=== PATIENT | male | born 1995 | race Caucasian/White ===

== ENCOUNTER → 2018-11-05 11:23 | Emergency (ER) | payer MEDICAID, OTHER ==
[~2018-11-05 11:23] MED LIST: Ketorolac INJ* 30 MG/ML 1 ML VIAL IV PUSH ONE
--- NOTE | 2018-11-05 12:17 | ED ---
Neurological HPI - HPI Summary HPI Summary: Pt is a 23 y/o M presenting to the ED with a chief complaint of seizures. This morning he had a headache onset around 0630 and he felt that he was going to have a seizure around 0845, so he told his brother who laid him in the safe position. He had three seizures in total, the 2nd and 3rd one both lasted five minutes. The pt denies chest pain, sob, fast HR, fever, chills, nausea, vomiting , falling, or hitting his head. The pt states a hx of asthma, PTSD, bipolar disorder, anxiety, depression, and GERD. He also reports he rarely drinks alcohol but does use marijuana. He has a hx of stress-induced seizures but he has not had them in a long time. He had a full workup done in [place] about 7 years ago, and his doctor said that he wanted another MRI or CT done to see if anything has progressed. - History of Current Complaint Chief Complaint: EDSeizure Stated Complaint: SEIZURE Time Seen by Provider: 11/05/18 11:39 Hx Obtained From: Patient Onset/Duration: Gradual Onset, Started hours ago, Resolved Timing: Constant Onset Severity: Mild Current Severity: Mild Seizure Severity: Moderate Number of Seizures: 3 - lasting 5 minutes Pain Intensity: 5 Pain Scale Used: 0-10 Numeric Aggravating: Headaches Alleviating: Spontanious Resolution Associated Signs and Symptoms: Positive: Headache, Seizure. Negative: Nausea/ Vomiting, Fever, Chest Pain Related Hx: Seizure - Allergy/Home Medications Allergies/Adverse Reactions: Allergies Allergy/AdvReac Type Severity Reaction Status Date / Time MS Diphenhydramine Allergy Intermediate Hives Verified 03/26/14 01:05 [From Benadryl] MS Levetiracetam AdvReac Intermediate MOOD SWING Verified 03/26/14 01:05 [From Keppra] bee sting Allergy Severe Shortness Uncoded 03/26/14 01:05 of Breath Home Medications: Home Medications Pantoprazole TAB * [Protonix TAB*] 40 mg PO DAILY 11/05/18 [History Confirmed ] lamoTRIgine [Lamotrigine] 50 tab PO DAILY 11/05/18 [History Confirmed 11/05/18] PMH/Surg Hx/FS Hx/Imm Hx Previously Healthy: No Endocrine/Hematology History: Denies: Hx Diabetes, Hx Thyroid Disease Cardiovascular History: Reports: Hx Hypertension Respiratory History: Reports: Hx Asthma, Hx Pneumonia Denies: Hx Chronic Obstructive Pulmonary Disease (COPD) GI History: Reports: Hx Gastroesophageal Reflux Disease Denies: Hx Ulcer History: Reports: Hx Kidney Infection, Hx Kidney Stones Sensory History: Reports: Hx Contacts or Glasses Opthamlomology History: Reports: Hx Contacts or Glasses Neurological History: Reports: Hx Seizures Psychiatric History: Reports: Hx Anxiety, Hx Depression Denies: Hx Eating Disorder - Surgical History Surgery Procedure, Year, and Place: hernia repair as an Infectious Disease History: No Infectious Disease History: Denies: Hx Hepatitis, Hx Human Immunodeficiency Virus (HIV), Traveled Outside the [place] in Last 30 Days - Family History Known Family History: Negative: Renal Disease - Social History Alcohol Use: Occasionally Hx Substance Use: Yes Substance Use Type: Reports: Marijuana Hx Tobacco Use: No Smoking Status (MU): Never Smoked Tobacco Have You Smoked in the Last Year: No Review of Systems Negative: Fever, Chills Negative: Chest Pain Negative: Shortness Of Breath Negative: Vomiting, Nausea Neurological: Other - seizure All Other Systems Reviewed And Are Negative: Yes Physical Exam - Summary Physical Exam Summary: GENERAL: Patient is a well-developed and nourished M who is lying comfortable in the stretcher. Patient is not in any acute respiratory distress. HEAD AND FACE: Normocephalic EYES: PERRLA, EOMI x 2. EARS: Hearing grossly intact. MOUTH: Oropharynx within normal limits. NECK: Supple, trachea is midline, no adenopathy, no JVD, no carotid bruit. CHEST: Symmetric, no tenderness at palpation LUNGS: Clear to auscultation bilaterally. No wheezing or crackles. CVS: Regular rate and rhythm, S1 and S2 present, no murmurs or gallops appreciated. ABDOMEN: Soft, non-tender. Bowel sounds are normal. No abdominal abnormal pulsations. EXTREMITIES: Full ROM in all major joints, no edema, no cyanosis or clubbing. NEURO: Alert and oriented x 3. No acute neurological deficits. Speech is normal and follows commands. SKIN: Dry and warm GCS: 15 Triage Information Reviewed: Yes Vital Signs On Initial Exam: Initial Vitals Temp Pulse Resp BP Pulse Ox 99.9 F 81 14 145/105 96 11/05/18 11:49 11/05/18 11:49 11/05/18 11:49 11/05/18 11:49 11/05/18 11:49 Vital Signs Reviewed: Yes Diagnostics - Vital Signs Vital Signs Temp Pulse Resp BP Pulse Ox 11/05/18 12:00 74 21 98 11/05/18 11:49 99.9 F 70 13 145/105 96 - Laboratory Result Diagrams: 11/05/18 12:43 11/05/18 12:43 Lab Statement: Any lab studies that have been ordered have been reviewed, and results considered in the medical decision making process. - CT Brain CT CT Interpretation Completed By: Radiologist Summary of CT Findings: No acute intracranial pathology. ED physician has reviewed this report. - EKG 1245 Cardiac Rate: NL - 77bpm EKG Rhythm: Sinus Rhythm ST Segment: Normal Ectopy: None Course/Dx - Course Course Of Treatment: Pt is a 23 y/o M presenting to the ED with a chief complaint of seizures. This morning he had a headache onset around 0630 and he felt that he was going to have a seizure around 0845, so he told his brother who laid him in the safe position. He had three seizures in total, the 2nd and 3rd one both lasted five minutes. The pt denies chest pain, sob, fast HR, fever , chills, nausea, vomiting, falling, or hitting his head. The pt states a hx of asthma, PTSD, bipolar disorder, anxiety, depression, and GERD. He also reports he rarely drinks alcohol but does use marijuana. An EKG shows NSR at 77bpm. Brain CT shows no acute intracranial pathology. As of 1405 the pt still has a small headache so he will be given toradol and then sent home. The pt will be sent home with a dx of seizure and instructions to follow up with neurology. I discussed results with patient and he reports feeling better. He is hemodynamically stable and safe for discharge. Strict return precautions given and he will otherwise follow up with neurology. - Diagnoses Provider Diagnoses: Seizure Discharge - Sign-Out/Discharge Documenting (check all that apply): Patient Departure Patient Received Moderate/Deep Sedation with Procedure: No - Discharge Plan Condition: Stable Disposition: HOME Forms: *Work Release Referrals: Yasmani Anguiano MD [Medical Doctor] - Additional Instructions: Follow up with neurology in 1-3 days. RETURN TO THE EMERGENCY DEPARTMENT FOR CHANGING OR WORSENING SYMPTOMS. - Billing Disposition and Condition Condition: STABLE Disposition: Home - Attestation Statements Document Initiated by Scribe: Yes Documenting Scribe: Leanne Cr Provider For Whom Keo is Documenting (Include Credential): Carlos Goins MD. Scribe Attestation: Leanne Millan, scribed for Carlos Goins MD. on 11/06/18 at 1210. Scribe Documentation Reviewed: Yes Provider Attestation: The documentation as recorded by the scribe, Leanne Cr accurately reflects the service I personally performed and the decisions made by me, Chloe Goins MD. Status of Scribe Document: Viewed
[2018-11-05 12:53] LABS: ABS Basophils 0 10^3/ul (0-0.2); ABS Eosinophils 0.1 10^3/ul (0-0.6); ABS Lymphocytes 2.1 10^3/ul (1.0-4.8); ABS Monocytes 0.5 10^3/ul (0-0.8); ABS Neutrophils 2.7 10^3/ul (1.5-7.7); ABS Nucleated RBC 0 10^3/ul; Hematocrit 45 % (42-52); Lymphocyte % 38.4 %; Mean Corpuscular HGB Conc 34 g/dl (31-36); Mean Corpuscular Hemoglobin 29 pg (27-31); Mean Corpuscular Volume 87 fL (80-94); Mean Platelet Volume 7.8 fL (7.4-10.4); Nucleated Red Blood Cells % 0.1; Platelet Count 247 10^3/ul (150-450); Red Blood Count 5.14 10^6/ul (4.00-5.40); Red Cell Distribution Width 13 % (10.5-15); White Blood Count 5.4 10^3/ul (3.5-10.8)
[2018-11-05 13:09] LABS: Albumin 4.5 g/dL (3.2-5.2); Albumin/Globulin Ratio 1.4 (1-3); BUN/Creatinine Ratio 16.5 (8-20); Calcium 9.9 mg/dL (8.6-10.3); EGFR Non-African American 110.7 (>60); Globulin 3.2 g/dL (2-4); Magnesium 1.9 mg/dL (1.9-2.7); Potassium 3.9 mmol/L (3.5-5.0); Total Bilirubin 1.7 mg/dL (0.2-1.0); Total Protein 7.7 g/dL (6.4-8.9)
[2018-11-05 13:12] LABS: INR 1.08 (0.77-1.02)
[2018-11-05 14:19] LABS: Urine Appearance Clear; Urine Bilirubin Negative (Negative); Urine Blood Negative (Negative); Urine Color Yellow; Urine Glucose Negative (Negative); Urine Ketones Negative (Negative); Urine Nitrite Negative (Negative); Urine Protein Negative (Negative); Urine Specific Gravity 1.015 (1.010-1.030); Urine Urobilinogen Positive (Negative)
[2018-11-05 15:12] VITALS: BP 136/85
[2018-11-05 15:17] LABS: Influenza A Molecular NEGATIVE (Negative); Influenza B Molecular NEGATIVE (Negative)
== END | disposition home or self-care (01) ==
LOC: ED 11:23
DX: G40.909 Epilepsy, unspecified, not intractable, without status epilepticus (principal)
CPT/HCPCS: 36415; 70450; 80053; 81003; 83605; 83735; 85025; 85610; 93005; 96374; 99283; J1885

== ENCOUNTER → 2019-04-13 15:08 | Emergency (ER) | payer OTHER ==
[2019-04-13 15:13] VITALS: BP 154/85
== END | disposition left against medical advice (07) ==
LOC: ED 15:08
DX: R31.9 Hematuria, unspecified (principal); Z53.21 Procedure and treatment not carried out due to patient leaving prior to being seen by health care provider

== ENCOUNTER 2019-06-30 17:03 | Emergency (ER) | payer OTHER ==
--- NOTE | 2019-06-30 17:36 | ED ---
Psychiatric Complaint - HPI Summary HPI Summary: The patient is a 24 y/o M presenting to [facility] with a chief complaint of sudden onset anger fit with suicidal ideation this afternoon. He reports that he lost his wallet and was angry and stressed out when he lost consciousness. He remembers picking up a knife in a plan to take his own life. He states that he has difficulty controlling himself when he becomes angry. He is not in any pain. He states that his medications are not helping anymore, so he uses marijuana to alleviate his symptoms, which he had some today to no relief. PMHx : HTN, anxiety, depression, bipolar disorder, PTSD, seizures, asthma. Nonsmoker , occasional EtOH, marijuana use. Medications reviewed. Allergies noted. - History Of Current Complaint Chief Complaint: EDSuicidal Time Seen by Provider: 06/30/19 17:25 Hx Obtained From: Patient Onset/Duration: Sudden Onset, Lasting Minutes, Resolved Timing: Minutes Severity Initially: Severe Severity Currently: Mild Character: Depressed, Angry, Frustrated Aggravating Factor(s): Recent Stress - lost wallet Alleviating Factor(s): Nothing Associated Signs And Symptoms: Positive: Hostile Related History: Positive For: Prior Psychiatric Issues - anxiety, depression, PTSD, bipolar disorder Has Suicidal: Reports: Thoughts, With A Plan - self-inflicted stabbing with knife - Allergies/Home Medications Allergies/Adverse Reactions: Allergies Allergy/AdvReac Type Severity Reaction Status Date / Time diphenhydramine Allergy Severe Swelling Verified 06/30/19 17:24 [From Benadryl] levetiracetam [From Keppra] Allergy Severe See Comment Verified 06/30/19 17:24 bee sting Allergy Severe Shortness Uncoded 03/26/14 01:05 of Breath Home Medications: Home Medications Citalopram Hydrobromide [Citalopram HBr] 1 tab PO DAILY 06/30/19 [History Confirmed 06/30/19] hydrOXYzine HCL TAB* [Atarax 25 MG TAB*] 1 tab PO BEDTIME 06/30/19 [History Confirmed 06/30/19] PMH/Surg Hx/FS Hx/Imm Hx Endocrine/Hematology History: Denies: Hx Diabetes, Hx Thyroid Disease Cardiovascular History: Reports: Hx Hypertension Denies: Hx Hypercholesterolemia Respiratory History: Reports: Hx Asthma, Hx Pneumonia Denies: Hx Chronic Obstructive Pulmonary Disease (COPD) GI History: Reports: Hx Gastroesophageal Reflux Disease Denies: Hx Ulcer History: Reports: Hx Kidney Infection, Hx Kidney Stones Sensory History: Reports: Hx Contacts or Glasses Opthamlomology History: Reports: Hx Contacts or Glasses Neurological History: Reports: Hx Seizures Psychiatric History: Reports: Hx Anxiety, Hx Depression, Hx Post Traumatic Stress Disorder, Hx Bipolar Disorder Denies: Hx Eating Disorder - Surgical History Surgical History: Yes Surgery Procedure, Year, and Place: hernia repair as an Infectious Disease History: No Infectious Disease History: Denies: Hx Hepatitis, Hx Human Immunodeficiency Virus (HIV), Traveled Outside the [place] in Last 30 Days - Family History Known Family History: Negative: Renal Disease - Social History Alcohol Use: Occasionally Hx Substance Use: Yes Substance Use Type: Reports: Marijuana Substance Use Comment - Amount & Last Used: daily Hx Tobacco Use: No Smoking Status (MU): Never Smoked Tobacco Have You Smoked in the Last Year: No Review of Systems Neurological: Other - loss of consciousness Positive: Depressed, Other - SI with plan, stressed, angry All Other Systems Reviewed And Are Negative: Yes Physical Exam - Summary Physical Exam Summary: VITAL SIGNS: Reviewed. GENERAL: Patient is a well-developed and nourished male who is lying comfortable in the stretcher. Patient is not in any acute respiratory distress. HEAD AND FACE: No signs of trauma. No ecchymosis, hematomas or skull depressions. No sinus tenderness. EYES: PERRLA, EOMI x 2, No injected conjunctiva, no nystagmus. EARS: Hearing grossly intact. Ear canals and tympanic membranes are within normal limits. MOUTH: Oropharynx within normal limits. NECK: Supple, trachea is midline, no adenopathy, no JVD, no carotid bruit, no c- spine tenderness, neck with full ROM. CHEST: Symmetric, no tenderness at palpation. LUNGS: Clear to auscultation bilaterally. No wheezing or crackles. CVS: Regular rate and rhythm, S1 and S2 present, no murmurs or gallops appreciated. ABDOMEN: Soft, non-tender. No signs of distention. No rebound, no guarding, and no masses palpated. Bowel sounds are normal. EXTREMITIES: FROM in all major joints, no edema, no cyanosis or clubbing. NEURO: Alert and oriented x 3. No acute neurological deficits. Speech is normal and follows commands. SKIN: Dry and warm. PSYCH: Depressed, quiet. States suicidal thoughts with a plan. No homicidal thoughts or plan. No signs of psychosis or pressure speech. No tangential speech. Triage Information Reviewed: Yes Vital Signs On Initial Exam: Initial Vitals Temp Pulse Resp BP Pulse Ox 99.5 F 109 19 176/104 97 06/30/19 17:05 06/30/19 17:05 06/30/19 17:05 06/30/19 17:05 06/30/19 17:05 Vital Signs Reviewed: Yes Procedures - Sedation Patient Received Moderate/Deep Sedation with Procedure: No Diagnostics - Vital Signs Vital Signs Temp Pulse Resp BP Pulse Ox 06/30/19 17:05 99.5 F 109 19 176/104 97 - Laboratory Result Diagrams: 06/30/19 17:38 06/30/19 17:38 Lab Statement: Any lab studies that have been ordered have been reviewed, and results considered in the medical decision making process. Re-Evaluation - Re-Evaluation First Eval Re-Evaluation Time: 17:45 Change: Unchanged Comment: Patient is medically clear for mental health evaluation. Course/Dx - Course Assessment/Plan: Patient is a 24 y/o M who has history of anxiety, depression, bipolar disorder, and PTSD with a chief complaint of anger with suicidality plan for stabbing self with knife after losing his wallet tonight. He states difficulty controlling self when angry and depressed, and he had lsos of consciousness with the event. Medication compliant but states he uses marijuana also because it helps more. Blood work w/o a significant abnormality. He is medically cleared. He is awaiting a MHE. Patient is hemodynamically stable and A +O x 3. Patient is signed out to Dr. Garner at shift change at 1900 on . - Differential Dx/Clinical Impression Provider Diagnosis: Depression Discharge ED - Sign-Out/Discharge Documenting (check all that apply): Sign-Out Patient Signing out patient TO: Tez Garner - Patient is a sign-out to Dr. Tez Garner MD, at 1900 on 06/30/2019, pending MHE and disposition. - Discharge Plan Referrals: No Primary Care Phys,NOPCP [Medical Doctor] - - Attestation Statements Document Initiated by Scribe: Yes Documenting Scribe: Sweetie Holloway Provider For Whom Scribe is Documenting (Include Credential): Dr. Juan Pablo Garcia MD Scribe Attestation: I, Sweetie Holloway, scribed for Dr. Juan Pablo Garcia MD on 06/30/19 at 1819. Scribe Documentation Reviewed: Yes Provider Attestation: The documentation as recorded by the Sweetie gupta accurately reflects the service I personally performed and the decisions made by me, Dr. Juan Pablo Garcia MD Status of Scribe Document: Ready
[2019-06-30 17:48] LABS: Hematocrit 42 % (42-52); Hemoglobin 14.6 g/dL (14.0-18.0); Mean Corpuscular HGB Conc 35 g/dL (31-36); Mean Corpuscular Hemoglobin 30 pg (27-31); Mean Corpuscular Volume 87 fL (80-94); Mean Platelet Volume 7.8 fL (7.4-10.4); Platelet Count 219 10^3/uL (150-450); Red Blood Count 4.84 10^6 /uL (4.18-5.48); Red Cell Distribution Width 13 % (10-15); White Blood Count 8.7 10^3/uL (3.5-10.8)
[2019-06-30 17:55] LABS: ABS Eosinophils 0.1 10^3/ul (0-0.6); ABS Lymphocytes 1.5 10^3/ul (1.0-4.8); ABS Monocytes 0.5 10^3/ul (0-0.8); ABS Neutrophils 6.6 10^3/ul (1.5-7.7); Eosinophil % 0.7 %; Lymphocyte % 16.9 %
[2019-06-30 18:02] LABS: ALT 28 U/L (7-52); AST 19 U/L (13-39); Albumin 4.8 g/dL (3.2-5.2); Albumin/Globulin Ratio 1.6 (1-3); Alkaline Phosphatase 78 U/L (34-104); Anion Gap 9 mmol/L (2-11); BUN/Creatinine Ratio 9.6 (8-20); Blood Urea Nitrogen 9 mg/dL (6-24); CO2 Carbon Dioxide 25 mmol/L (22-32); Calcium 9.8 mg/dL (8.6-10.3); Chloride 104 mmol/L (101-111); EGFR African American 118.3 (>60); EGFR Non-African American 97.8 (>60); Glucose 84 mg/dL (70-100); Potassium 3.4 mmol/L (3.5-5.0); Sodium 138 mmol/L (135-145); Total Protein 7.8 g/dL (6.4-8.9)
[2019-06-30 18:06] LABS: Acetaminophen < 15 mcg/mL; Alcohol < 10 mg/dL (<10); Salicylate < 2.50 mg/dL (<30)
[2019-06-30 18:30] LABS: Urine Appearance Clear; Urine Bilirubin Negative (Negative); Urine Blood Negative (Negative); Urine Color Amber; Urine Glucose Negative (Negative); Urine Ketones 1+ (Negative); Urine Nitrite Negative (Negative); Urine Protein Negative (Negative); Urine Specific Gravity 1.026 (1.010-1.030); Urine Urobilinogen Negative (Negative)
[2019-06-30 18:39] LABS: Urine Benzodiazepine Screen None Detected (None Detect); Urine Opiates Screen None Detected (None Detect)
--- NOTE | 2019-06-30 19:12 | ED ---
Progress - Progress Note Progress Note: Pt is a sign out from Dr. Garcia at 19:00 on 06/30/19; shift change. Pt is pending a evaluation disposition. At 0049, horse stud manager reports that pts case was reviewed by Dr. Gipson who recommends pt be discharged and [facility] with a diagnosis of depression and anxiety. Re-Evaluation - Re-Evaluation First Eval Re-Evaluation Time: 17:45 Change: Unchanged Comment: Patient is medically clear for mental health evaluation. Course/Dx - Diagnoses Provider Diagnoses: Depression, Anxiety - Provider Notifications Discussed Care Of Patient With: Adriel Gipson - At 0049, horse stud manager reports that pts case was reviewed by Dr. Gipson who recommends pt be discharged and to follow [facility] with [facility] with a diagnosis of depression and anxiety. Time Discussed With Above Provider: 00:49 Discharge ED - Sign-Out/Discharge Documenting (check all that apply): Receiving Sign-Out Receiving patient FROM: Juan Pablo Garcia - 19:00 on 06/30/19 - Discharge Plan Condition: Stable Disposition: HOME Patient Education Materials: Social Anxiety Disorder (ED), Anxiety (ED) Referrals: No Primary Care Phys,NOPCP [Medical Doctor] - Additional Instructions: Per completion of a mental health evaluation, you are cleared for release and do not require inpatient psychiatric hospitalization at this time. Please go to nearest emergency room or call 911 if safety concerns arise or condition worsens. Please Contact [facility] to set up an initial appointment. Important Phone Numbers: [facility] [phone] Suicide Prevention and Crisis Services........................ [phone] National Suicide Prevention Lifeline............................ 724-155-LZHF (4223) [facility]....................... [phone] Alcoholics Anonymous............................................... [phone] [facility].............. [phone] [facility] Police.............................................. [facility] [phone] [facility] - Billing Disposition and Condition Condition: STABLE Disposition: Home - Attestation Statements Document Initiated by Keo: Yes Documenting Scribe: Janee Andrews Provider For Whom Keo is Documenting (Include Credential): Tez Garner MD Scribe Attestation: IJanee, scribed for Tez Garner MD on 07/01/19 at 0108. Scribe Documentation Reviewed: Yes Provider Attestation: The documentation as recorded by the Janee gupta accurately reflects the service I personally performed and the decisions made by , Tez Garner MD Status of Scribe Document: Viewed
[2019-07-01 01:14] VITALS: BP 144/92
== END 2019-07-01 01:09 | disposition home or self-care (01) ==
LOC: ED 17:03
DX: F32.9 Major depressive disorder, single episode, unspecified (principal); F41.9 Anxiety disorder, unspecified; F43.10 Post-traumatic stress disorder, unspecified; I10 Essential (primary) hypertension; K21.9 Gastro-esophageal reflux disease without esophagitis; Z87.442 Personal history of urinary calculi
CPT/HCPCS: 36415; 80053; 80307; 80320; 80329; 81003; 84443; 85025; 99283; G0480